=== PATIENT | male | born 1980 | race Caucasian/White ===

== ENCOUNTER 2017-06-16 18:01 | Emergency (ER) | payer OTHER ==
[~2017-06-16] VITALS: Ht 172.7 cm; Wt 104.3 kg
[~2017-06-16 18:01] MED LIST: FLEXERIL10 MG PO; NOMEDS XX
[2017-06-16 18:25] LABS: HEMOGLOBIN 14.9 g/dL (14.1-18.0)
[2017-06-16 18:26] LABS: LYMPH # 2.7 K/mm3 (0.7-4.5); LYMPH % 21.4 % (10-50)
--- NOTE | 2017-06-16 18:51 | RADIOLOGY REPORT PS360 ---
CT ABD PELVIS W/O CONTRAST HISTORY: RT FLANK PAIN, R/O KIDNEY STONE Patient Age: 36 years: Male Ordering Physician: Prasanna Nicholson MD TECHNIQUE: Helical CT scanning performed the abdomen and pelvis with no oral nor IV contrast COMPARISON : No previous studies for comparison FINDINGS Lung bases appear clear no active disease. Abdomen/pelvis.: Lack of oral and IV contrast decreases sensitivity Liver. No focal lesions. No biliary ductal dilatation. Gallbladder. No calcified stones. Normal size unremarkable. Spleen. Unremarkable. Pancreas. Satisfactory. Adrenals unremarkable. Right kidney. Mild Hydronephrosis due to a small 3.3 x 2.2 mm mm calculus at proximal most right ureter, axial image 58 coronal 30. This stone is located just to the right of L2/[address] the [address] medical laboratory technical officer view.. The right ureter below this level unremarkable. No additional more fairly at the right ureter nor . There is a tiny 2 mm calculus nonobstructive upper pole right kidney previously noted Left kidney:. Left kidney. 2.2 mm calculus at the mid to lower left kidney. Nonobstructive. Axial image 48, coronal 47. Adrenals unremarkable. Pelvis. Urinary bladder relatively small and contracted with no calculi.. Incidental urachal process remanent extending upward from the anterior bladder incidentally noted not of significance. Modest size prostate GI tract. .Slight increased fluid throughout the small bowel with some scattered air-fluid levels. .Large bowel. Minimal stool. . Appendix normal. Normal ileum unremarkable. .Stomach. There is layering fat/fluid level along from ingested material Osseous. No significant osseous findings. IMPRESSION: 1. RIGHT kidney- obstructive uropathy .. Right hydronephrosis\ -This is due to a 3.3 mm stone at the proximal most right ureter just below the right UPJ. .-Additional small nonobstructive punctate calculus 2 mm upper pole right kidney. 2. Left kidney. Small 2.5 mm nonobstructive calculus mid to lower left kidney 3. Generous fluid throughout small bowel r . Question mild ileus or less likely early enteritis. 4. Other observations in text above
[2017-06-16] MEDS ORDERED: HYDROCODONE-APA1 TA1 PO (19:35)
[2017-06-16] MEDS ORDERED: ZOFRAN ODT4 MG PO (19:35)
[2017-06-16] MEDS ORDERED: BACTRIM DS TAB1 EACH PO (19:36)
[2017-06-16] MEDS ORDERED: FLOMAX 0.4MG C0.4 MG PO (19:36)
--- NOTE | 2017-06-16 19:38 | Emergency Room Report ---
History of Present Illness Time Seen by 182Amena Presenting Problem in Triage Pt arrived:Walked Presenting Problem:PT REPORTS R FLANK PAIN. 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 N Clinical Suspician of Infection? N Mental Status: 1 - Regular (Normal Baseline) Sepsis Risk:Low Sepsis Risk Have you (or family members/close friends) recently traveled outside the [place]? N If Yes, where/when: Have you had exposure to infectious disease within the past month? N TB? Other? Specify: 6 years old white male who has experienced RIGHT flank pain prior to presenting to the. He is experiencing nausea and vomiting. There was no hematemesis coffee- ground emesis or hematuria. He believes is having a kidney stone. Source patient, RN notes reviewed, family Exam Limitations no limitations ALLERGIES Coded Allergies: No Known Allergies (06/16/17) Home Medications Reported Medications No Known Home Medications History Medical History General CAD? No Angina: No IN: No Hypertension? No Hyperlipidemia? No CHF? No DVT? No PE? No COPD? No Asthma? No Anemia? No GERD? No Gastric ulcers? No GI Bleed? No Hernia? No Thyroid Problems? No Hypothyroidism? No CVA? No Seizures? No Diabetes? No Renal Insuffiency? No End Stage Renal Disease? No UTI? No Stones? No GB Disease: No Nephritic Syndrome? No Asplenia? No Hepatitis? No Sickle Cell Disease? No Arthritis? No Migraines? No Cataracts? No Glaucoma? No MRSA? No HIV? No TB? No Anxiety? No Depression? No Cancer? No More? No Immunization Hx DT/Tetanus Unknown Surgical Hx Previous Surgery?N Social History Smoking Hx Smoker: Never Smoker Tobacco: No Alcohol Alcohol: No Review of Systems All Other Systems Reviewed and Negative Constitutional no symptoms reported Eyes no symptoms reported ENT no symptoms reported. Respiratory no symptoms reported Cardiovascular no symptoms reported Gastrointestinal no symptoms reported Genitourinary no symptoms reported, see HPI. Musculoskeletal no symptoms reported Skin no symptoms reported Psychiatric/Neurological no symptoms reported Physical Exam Vital Signs Vital Signs Date Time Temp Pulse Resp B/P Pulse O2 O2 Flow FiO2 Ox Delivery Rate 06/16 1818 18 09/25 1805 97.5 65 18 123/85 100 - WBC >12,000 or <4,000 or 10% bands? 2 or more SIRS Criteria Met? B/P:123/85 MAP:97 Creatinine >2.0? UA output<0.5ml/kg/hr for 2 hrs? Platelet count >100,000? Lactate >2.0mmol/1? INR >1.2 or PTT > than 60 sec? Evidence of Organ Dysfunction? Provider documented clinical suspician of infection? N Sepsis Criteria Count: 0 Sepsis Risk: Low Sepsis Risk General Appearance normal appearance, WD/WN Eye Exam - bilateral eye normal exam, bilateral eye PERRL, bilateral eye EOMI Ear, Nose, Throat hearing grossly normal, normal ENT inspection Neck normal inspection, non-tender, supple, full range of motion Respiratory Status Yes: trachea midline, chest symmetrical, non tender chest. No: respiratory distress. Lung Sounds bilateral: normal breath sounds, lungs clear. Cardiovascular normal exam, regular rate/rhythm, no peripheral edema, no gallop, no JVD, no murmur, no rub, normal peripheral pulses Peripheral Pulses Pulses normal Yes Gastrointestinal normal bowel sounds, normal exam, non tender, soft, no organomegaly Extremities non-tender, normal range of motion, normal inspection Male Genitalia normal genitalia, normal prostate, no hernia Nurse present during exam? No Neurologic alert, fruit coordinator II-XII nml as tested, normal exam, oriented x 3 Skin intact, normal color, warm/dry Lymphatic no adenopathy Medical Decision Making LABS/Meds/Orders Pt receiving controlled substance in ED? No Results/Orders Laboratory Tests 06/16/171815: Sodium 140, Potassium 3.9, Chloride 105, Carbon Dioxide 25, BUN 21 H, Creatinine 1.4 H, Estimated Creat Clear 110, Estimated GFR (MDRD) 58, Glucose 115 H, Calcium 9.5, Total Bilirubin 0.4, AST 14 L, ALT 28, Alkaline Phosphatase 76, Total Protein 8.3 H, Albumin 4.5, Globulin 3.8 H, Albumin/ Globulin Ratio 1.2, WBC 12.6 H, RBC 5.28, Hgb 14.9, Hct 44.8, MCV 84.8, RDW 14.1, Plt Count 308, Gran % 74.2, Gran # 9.3 H, Lymphocytes % 21.4, Monocytes % 4.4, Lymphocytes # 2.7, Monocytes # 0.6, PUBS MCHC 33.3, MCH 28.2 Current Medication Orders Sig/Mariann Start time Last Medication Dose Route Stop Time Status Admin Morphine Sulfate 4 MG ONCE ONE 06/16 1915 DC IV 06/16 1916 Morphine Sulfate 0 .STK-MED ONE 06/16 1903 DC .ROUTE Ketorolac 30 MG ONCE ONE 06/16 1815 DC 06/16 Tromethamine IV 06/16 Ondansetron HCl 4 MG ONCE ONE 06/16 1815 DC 06/16 IV 06/16 Sodium Chloride 10 ML PRN PRN 06/16 1815 AC IV 06/17 1811 Ondansetron HCl 0 .STK-MED ONE 06/16 1813 DC .ROUTE Sodium Chloride 1,000 ML .STK-MED ONE 06/16 1813 DC IV Ketorolac 0 .STK-MED ONE 06/16 1812 DC Tromethamine .ROUTE Orders Procedure Date/time Status DIET-NOTHING BY MOUTH 06/17 B Active URINALYSIS/COMPLETE 06/[address] ABD/PELVIS REQ 06/16 1812 Complete IV SALINE LOCK 06/16 1812 Active CBC WITH AUTO DIFF 06/16 1812 Complete CHEM 12 PROFILE 06/16 1812 Complete Departure Departure Time of Disposition 1930 Disposition DC Home or Self Care(routine) Clinical Impression Primary Impression: Ureteric stone Condition STABLE Referrals Devon PIERCE,Delgado Looney (Family) Additional Instructions I discussed the CT scan and lab results with the patient and his is a dialysis nurse. At this point he has no pain and he declined pain medicine. Would like to have a trial of outpatient treatment and follow up with urology in the morning. I placed Dr. BANG. History is that of the pain worsen vomiting develops unable to keep his medicine he will return for admission. His mother and his are in agreement. DRINK PLENTY OF FLUIDS STRAIN ALL URINE USE NAUSEA AND PAIN MEDICINE RETURN FOR FEVER , VOMITING, BILATERAL KIDNEY PAIN. SEE DR BANG IN AM OR CALL DR BROWN FOR ASSISTANCE Discharge Counseling Counseled pt/family regarding diagnosis, test results, medications/RX, home care, follow up needs Prescriptions Current Visit Scripts Ondansetron (Zofran 4MG Odt) 4 MG PO Q8HP PRN NAUSEA #6 ODT HYDROCODONE 5MG/APAP 325MG (Hydrocodon-Acetaminophen 5-325) 1 TAB PO Q8HP PRN PAIN #6 TAB TAMSULOSIN HCL (Flomax 0.4MG) 0.4 MG PO QHS #5 CAP Sulfamethoxazole/Trimethoprim (Bactrim Ds Tablet) 1 EACH PO Q12 #14 TAB ED Critical Care Critical Care No If Critical Care minutes are documented, the time involved in the performance of seperately reportable procedures was not counted toward critical care time documented. I directly delivered medical care to this critically ill and/or injured patient. Timely evaluation and treatment was necessary to address the significant organ system(s) dysfunction present in this patient. at 1938
[2017-06-16 20:07] LABS: URINE BILIRUBIN - DIPSTICK NEGATIVE (NEG); URINE BLOOD 3+ (NEG)
[2017-06-16 20:10] VITALS: BP 129/75
== END 2017-06-16 20:11 | disposition home or self-care (01) ==
LOC: ER 18:01
PROVIDERS: Emergency Medicine
DX: N13.2 Hydronephrosis with renal and ureteral calculous obstruction (principal)
CPT/HCPCS: J2405